=== PATIENT | female | born 1960 | race Caucasian/White ===

== ENCOUNTER 2025-04-23 17:59 | Emergency (ER) | payer MEDICARE, OTHER, SELFPAY ==
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
[2025-04-23 18:01] VITALS: BP 143/57; PULSE 73; RESP 18; TEMP 37.1; O2SAT 98
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
[2025-04-23] MEDS: Diph,Pertuss(Acell),Tet Vac/Pf 0.5 ML SYR IM (18:24)
[2025-04-23] MEDS: Ibuprofen 600 MG TAB PO (19:23)
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
--- NOTE | 2025-04-24 15:07 | NUR.NOTE ---
Access chart to print demographic sheet for [facility] billing requisition. Nursing Note:
== END 2025-04-23 19:15 | disposition home or self-care (01) ==
PROVIDERS: Emergency Provider Emergency Medicine
DX: S42.211A Unspecified displaced fracture of surgical neck of right humerus, initial encounter for closed fracture (principal); V18.4XXA Pedal cycle driver injured in noncollision transport accident in traffic accident, initial encounter; Y92.488 Other paved roadways as the place of occurrence of the external cause; Y93.55 Activity, bike riding; Z23 Encounter for immunization
CPT/HCPCS: 90471; 90715; 99283; 73030; 73060